=== PATIENT | male | born 1975 | race Caucasian/White ===

== ENCOUNTER 2021-08-05 03:13 | Emergency (ER) | payer OTHER, SELFPAY ==
[2021-08-05 03:14] VITALS: BP 196/108; PULSE 68; RESP 18; TEMP 36.7; O2SAT 98; BMI 41.0
--- NOTE | 2021-08-05 03:27 | EX.ED.DYSGE1 ---
HPI History of Present Illness Chief Complaint: Flank Pain Informant: patient Onset/Context/Timing Onset: Yesterday Narrative Narrative: Patient presents with 5-day history of nausea and occasional vomiting. Yesterday had very little vomiting but developed recurrent symptoms around 9:30 PM associated with mild right flank pain. No diarrhea. No urinary symptoms. No history of kidney stones. No fever or chills. No ill contacts. PFSH PFSH Medical History no medical history no medical history Home Medications ondansetron HCl [Zofran] 4 mg PO Q8H PRN 08/05/21 [History Last Taken Unknown] promethazine 25 mg PO TID PRN #14 tab 08/05/21 [Rx Last Taken Unknown] Allergy/AdvReac Type Severity Reaction Status Date / Time acetaminophen [From Percocet] AdvReac Other Verified 12/27/15 18:22 oxycodone HCl [From Percocet] AdvReac Other Verified 12/27/15 18:22 Surgical History History of appendectomy Social History Smoking Status: Current every day smoker tobacco type: cigarettes ROS ROS ED Constitutional Constitutional ED: Denies chills or fever(s) Eyes Eyes: Denies change in vision ENT ENT ED: Denies sore throat Cardiovascular Cardiovascular: Denies chest pain Respiratory/Chest Respiratory/Chest: Denies cough or dyspnea Gastrointestinal Gastrointestinal: Reports abdominal pain, nausea and vomiting; Denies diarrhea Genitourinary Genitourinary ED: Denies dysuria or hematuria Musculoskeletal Musculoskeletal: Reports back pain Integumentary Denies rash Neurologic Neurologic: Denies headache(s) or weakness Allergic/Immunologic Allergic/Immunologic ED: Denies urticaria EXAM Physical Exam Const Vital Signs: 08/05/21 03:14 08/05/21 05:29 Temperature 98.0 F Temperature Source Oral Pulse Rate 68 53 L Respiratory Rate 18 16 Blood Pressure 196/108 H Blood Pressure Mean 137 Pulse Ox 98 94 Oxygen Delivery Method Room Air Room Air Positive well nourished and well developed General Appearance ED: well developed HEENT Reports moist mucous membranes Eyes PERRL and EOMs intact bilaterally Neck supple Chest Wall inspection of chest normal and palpation of chest normal Resp normal respiratory effort and clear to auscultation bilaterally Cardio regular rate and regular rhythm GI non-tender Auscultation: hypoactive bowel sounds Palpation: soft Back/Spine no CVA tenderness Back/Spine Narrative: Mild tenderness in the right lumbar paraspinals. No erythema or overlying skin change. Extremity normal to inspection Neuro oriented x3 Sensorium / Orientation: alert Psych mental status grossly normal Skin no rashes or lesions noted MDM MDM MDM Narrative Medical decision making narrative: Lab work and urinalysis obtained. Patient given Zofran, morphine, Toradol, IV fluids. Lab Data Attestation: I reviewed the patient's lab results. Labs: Laboratory Results - last 24 hr 08/05/21 08/05/21 08/05/21 03:25 03:25 03:25 WBC 10.2 RBC 4.97 Hgb 15.1 Hct 45.5 MCV 91.5 MCH 30.4 MCHC 33.2 RDW Std Deviation 44.1 H RDW Coeff of Anoop 13.1 Plt Count 316 MPV 9.7 Immature Gran % (Auto) 0.300 Neut % (Auto) 53.9 Lymph % (Auto) 34.6 [place] % (Auto) 7.5 Eos % (Auto) 2.7 Baso % (Auto) 1.0 Absolute Neuts (auto) 5.5 Absolute Lymphs (auto) 3.53 Nucleated RBC % 0 Sodium 140 Potassium 3.7 Chloride 108 H Carbon Dioxide 30.0 Anion Gap 2 L BUN 13 Creatinine 0.98 Estim Creat Clear Calc 103.38 Est GFR (MDRD) Af Amer 106 Est GFR (MDRD) Non-Af 88 BUN/Creatinine Ratio 13.3 Glucose 92 Calcium 8.8 Troponin I High Sens 22 Urine Color Urine Clarity Urine pH Ur Specific [place] Urine Protein Urine Glucose (UA) Urine Ketones Urine Occult Blood Urine Nitrite Urine Bilirubin Urine Urobilinogen Ur Leukocyte Esterase Urine RBC Urine WBC Ur Squamous Epith Cells Urine Bacteria Urine Mucus 08/05/21 08/05/21 03:30 05:20 WBC RBC Hgb Hct MCV MCH MCHC RDW Std Deviation RDW Coeff of [place]oop Plt Count MPV Immature Gran % (Auto) Neut % (Auto) Lymph % (Auto) [place] % (Auto) Eos % (Auto) Baso % (Auto) Absolute Neuts (auto) Absolute Lymphs (auto) Nucleated RBC % Sodium Potassium Chloride Carbon Dioxide Anion Gap BUN Creatinine Estim Creat Clear Calc Est GFR (MDRD) Af Amer Est GFR (MDRD) Non-Af BUN/Creatinine Ratio Glucose Calcium Troponin I High Sens 25 Urine Color Yellow Urine Clarity Clear Urine pH 6.0 Ur Specific [place] 1.015 Urine Protein Negative Urine Glucose (UA) Normal Urine Ketones Negative Urine Occult Blood Negative Urine Nitrite Negative Urine Bilirubin Negative Urine Urobilinogen 1 H Ur Leukocyte Esterase Negative Urine RBC 0 SEEN Urine WBC 0 SEEN Ur Squamous Epith Cells 0 SEEN Urine Bacteria 0 SEEN Urine Mucus 0 SEEN Radiography Chest X-Ray - ED: 1 View, Read by ED Physician and Chronic Changes Diagnostic Testing: Clinical Impression(s) from Imaging Studies Chest X-Ray 08/05/21 04:05 IMPRESSION: Mild cardiomegaly. Electronically Signed: Yaron Franks MD at 5:02 EDT , EKG Initial EKG: Attestation: I personally reviewed and interpreted this EKG as follows: Interpretation: Sinus Bradycardia (Sinus bradycardia at 58 bpm. Lateral T wave flattening.) Treatment and Re-Evaluation Narrative: On repeat evaluation patient did report some improvement in his symptoms. At that time on the repeat eval he stated that he been having some intermittent chest pain for the past couple of days. At that time patient was placed on vehicle monitor technician. EKG, chest x-ray, troponin ordered. Initial troponin returns at 22. 2-hour repeat troponin is 25. While the patient was being observed and waiting for his 2-hour repeat he was noted to have a couple episodes of bradycardia with heart rates under 50. This appeared to be a sinus bradycardia that would occur when he was sleeping. Nursing staff did also note an episode of desaturation with sleep. does note that he snores and she will nudged him frequently to wake him. I did recommend he follow-up with his primary care physician and get tested for sleep apnea. Repeat blood pressure to prior to discharge is 133/86. Discharge Plan Triage Chief Complaint: Flank Pain ED Provider: Angelita Santos Dx/Rx/DC Orders Clinical Impression: Viral syndrome, Chest pain Instructions: ED Chest Pain, Uncertain Cause, ED Viral Syndrome (Adult) Prescriptions: New promethazine 25 mg tablet 25 mg PO TID PRN (Reason: nausea and vomiting) Qty: 14 RF: 0 No Action ondansetron HCl [Zofran] 4 mg Tablet 4 mg PO Q8H PRN (Reason: Nausea) RF: 0 Stand Alone Forms: ED Work / School Excuse Primary Care Provider: Bandar Santana Referrals: Bandar Santana MD [Primary Care Provider] - 1 Week Activity Restrictions/Additional Instructions: As discussed, please follow-up with your primary care physician regarding testing for sleep apnea. Disposition Disposition: Home, Self Care
[2021-08-05 03:35] LABS: Absolute Lymphocyte Count 3.53 X10^3/uL (0.83-4.51); Absolute Neutrophil Count 5.5 X10^3/uL (2.0-7.7); Eosinophil# 0.28 X10^3/uL; Eosinophils% 2.7 % (0-5); Hematocrit 45.5 % (40-54); Hemoglobin 15.1 g/dL (13.0-16.5); Lymphocyte # 3.53 X10^3/ul (0.83-4.51); Lymphocyte % 34.6 % (19-41); Mean Corp Hgb Conc 33.2 g/dL (32-36); Mean Corpuscular Hgb 30.4 pg (27.0-32.0); Mean Corpuscular Volume 91.5 fL (80-94); Mean Platelet Vol. 9.7 fl (6.2-12.0); Monocyte# 0.76 X10^3/uL; Monocyte% 7.5 % (0-10); NRBC Flagged by Analyzer 0 % (0-5); Neutrophil # 5.49 X10^3/uL (2.7-7.7); Neutrophil % 53.9 % (47-70); Platelet Count 316 K/mm3 (150-450); RBC Distribution Width CV 13.1 % (11.6-14.6); RBC Distribution Width SD 44.1 fl (35.1-43.9); Red Blood Count 4.97 M/mm3 (4.6-6.2); White Blood Count 10.2 K/mm3 (4.4-11.0)
[2021-08-05] MEDS: Ketorolac 30 MG/ML Syringe IV (03:37)
[2021-08-05 03:38] LABS: Bacteria 0 SEEN /hpf (None Seen); Color, Urine Yellow (Yellow); Glucose, Dipstick Normal (Normal); Ketone-Dipstick Negative (Negative); Leukocyte Esterase-Dipstick Negative /ul (Negative); Mucous, Urine 0 SEEN /hpf (<or=2+); Nitrite-Dipstick Negative (Negative); Occult Blood-Urine Negative /ul (Negative); Protein-Dipstick Negative (Negative); Red Blood Cells-Urine 0 SEEN /hpf (0-5); Specific Gravity, Urine 1.015 (1.002-1.030); Squamous Epithelial Cells - UA 0 SEEN /hpf (0-5); Urine Bilirubin Dipstick Negative (Negative); Urine Clarity Clear (Clear); Urine Urobilinogen 1 mg/dl (Normal); White Blood Cells 0 SEEN /hpf (0-5)
[2021-08-05] MEDS: Morphine 4 MG/ML Syringe IV (03:38)
[2021-08-05] MEDS: 0.9% Normal Saline 1,000 ML 1000 ML IV (03:38)
[2021-08-05] MEDS: Ondansetron 4 MG/2 ML Vial IV (03:38)
[2021-08-05 03:55] LABS: Anion Gap 2 (5-15); BUN 13 mg/dL (7-18); BUN/Creat Ratio 13.3 RATIO (10-20); Calcium,Total 8.8 mg/dL (8.5-10.1); Chloride 108 mmol/L (98-107); Creatinine, Serum 0.98 mg/dL (0.70-1.30); EST Glomerular Filtration Rate 88 mL/min (>60); Est Glom Filt Rate - Afr Amer 106 mL/min (>60); Estimated Creatinine Clearance 103.38 ml/min; Glucose 92 mg/dL (74-106); Potassium 3.7 mmol/L (3.5-5.1); Sodium Level 140 mmol/L (136-145)
--- NOTE | 2021-08-05 04:05 | EKG12_ITS ---
Test Reason : FLANK PAIN Blood Pressure : / mmHG Vent. Rate : 058 BPM Atrial Rate : 058 BPM P-R Int : 204 ms QRS Dur : 104 ms QT Int : 438 ms P-R-T Axes : 034 -31 108 degrees QTc Int : 429 ms Sinus bradycardia Left axis deviation T wave abnormality, consider lateral ischemia Abnormal ECG Confirmed by GRAHAM MANRIQUEZ, HEENA ([id number]), map editor SHAGUFTA JEFFERS ([id number]) on 08/09/2021 8:51:22 AM Referred By: MAYO Confirmed By:HEENA STEVENSON MD
--- NOTE | 2021-08-05 04:05 | RAD_ITS ---
EXAM: XR CHEST, 1 VIEW CLINICAL INDICATION: cp TECHNIQUE: Frontal view of the chest. This report was created using [employer] report generation technology. COMPARISON: None. FINDINGS: LUNGS AND PLEURAL SPACES: Unremarkable. No consolidation or edema. No pneumothorax. No effusion. HEART: Mild cardiomegaly. MEDIASTINUM: Central airways and mediastinal contour are unremarkable. BONES/JOINTS: Unremarkable. SOFT TISSUES: Unremarkable. RAD/Chest 1 View (Portable) IMPRESSION: Mild cardiomegaly. Electronically Signed: Yaron Franks MD at 5:02 EDT ,
[2021-08-05 04:25] LABS: Troponin-I HS 22 pg/mL (3.0-78.0)
[2021-08-05 05:29] VITALS: PULSE 53; RESP 16; O2SAT 94
[2021-08-05 05:50] LABS: Troponin-I HS 25 pg/mL (3.0-78.0)
[2021-08-05 05:57] VITALS: BP 133/86; PULSE 54; RESP 14; O2SAT 93
[2021-08-05 06:07] VITALS: BP 122/89; PULSE 55; RESP 18; O2SAT 97
== END 2021-08-05 06:08 | disposition home or self-care (01) ==
PROVIDERS: Emergency Provider Emergency Medicine; PCP Family Medicine; Visit Provider Emergency Medicine
DX: B34.9 Viral infection, unspecified (principal); R10.9 Unspecified abdominal pain; F17.210 Nicotine dependence, cigarettes, uncomplicated; R11.2 Nausea with vomiting, unspecified; R07.9 Chest pain, unspecified
CPT/HCPCS: 71045; 80048; 81001; 84484; 85025; 93005; 96361; 96374; 96375; 99283; J7030; A4216; J2405